=== PATIENT | male | born 1990 | race Caucasian/White ===

== ENCOUNTER 2017-03-20 20:05 | Emergency (ER) | payer OTHER ==
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
--- NOTE | 2017-03-20 21:38 | ED ORDER SUMMARY ---
..... Patient: YOLY LEROY OrderSheet [facility] VisitID: [id number] [place] [address] 26y, M Registration Date/Time: 03/20/2017 ORDER SHEET Weight: 81.6 kg (stated) Allergies: No Known Drug Allergy GENERAL ORDERS: Shoulder 2V or more Right Urgent (20:12 03/20/2017 HBivens A.R.N.P.) (Ack 20:17 AMcQuoid ER Tech1) (20:18 CBradburn R.N.) Ribs Unilat w PA Chest Left Urgent (20:12 03/20/2017 HBivens A.R.N.P.) (Ack 20:17 AMcQuoid ER Tech1) (20:18 CBradburn R.N.) Sling - arm (21:18 03/20/2017 HBivens A.R.N.P.) (21:38 CBradburn R.N.) MEDICATION ORDERS: Tdap IM 0.5 mL (NOW, per protocol) (20:12 03/20/2017 HBivens A.R.N.P.) (Ack 20:30 CBradburn R.N.) (20:37 CBradburn R.N.) Hydrocodone-APAP PO 5/325 mg (NOW, HIGH ALERT MEDICATION) (20:29 03/20/2017 HBivens A.R.N.P.) (Ack 20:30 CBradburn R.N.) (20:34 CBradburn R.N.) IV FLUIDS: ORDER SHEET NOTES: [Electronically signed by Neelima Sanchez R.N. (21:44 03/20/2017)] [Electronically signed by Carole Palma A.R.N.P. (22:24 03/20/2017)] [Electronically locked/signed by Neelima Sanchez R.N. (21:44 03/20/2017)]
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
--- NOTE | 2017-03-20 21:38 | ED ORDER SUMMARY ---
..... Patient: YOLY LEROY OrderSheet [facility] VisitID: [id number] [place] [address] 26y, M Registration Date/Time: 03/20/2017 ORDER SHEET Weight: 81.6 kg (stated) Allergies: No Known Drug Allergy GENERAL ORDERS: Shoulder 2V or more Right Urgent (20:12 03/20/2017 HBivens A.R.N.P.) (Ack 20:17 AMcQuoid ER Tech1) (20:18 CBradburn R.N.) Ribs Unilat w PA Chest Left Urgent (20:12 03/20/2017 HBivens A.R.N.P.) (Ack 20:17 AMcQuoid ER Tech1) (20:18 CBradburn R.N.) Sling - arm (21:18 03/20/2017 HBivens A.R.N.P.) (21:38 CBradburn R.N.) MEDICATION ORDERS: Tdap IM 0.5 mL (NOW, per protocol) (20:12 03/20/2017 HBivens A.R.N.P.) (Ack 20:30 CBradburn R.N.) (20:37 CBradburn R.N.) Hydrocodone-APAP PO 5/325 mg (NOW, HIGH ALERT MEDICATION) (20:29 03/20/2017 HBivens A.R.N.P.) (Ack 20:30 CBradburn R.N.) (20:34 CBradburn R.N.) IV FLUIDS: ORDER SHEET NOTES: [Electronically signed by Neelima Sanchez R.N. (21:44 03/20/2017)] [Electronically signed by Carole Palma A.R.N.P. (22:24 03/20/2017)] [Electronically locked/signed by Neelima Sanchez R.N. (21:44 03/20/2017)]
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
--- NOTE | 2017-03-20 22:24 | ED MAR SUMMARY ---
..... Medication Administration Record [facility] [address] [place] [address] Patient: YOLY LEROY Visit ID: [id number] 26y, M Weight: 81.6 kg Height/Length: 72 in BMI: 24.4 ALLERGIES: No Known Drug Allergy Given 20:34 03/20/2017 Neelima Sanchez R.N. Medication Administered: HYDROCODONE-APAP [PO] (HYDROCODONE-ACETAMINOPHEN), Dose: 1 tab 5/325 mg Tablets PO. Medication Ordered: Hydrocodone-APAP PO 5/325 mg (NOW, HIGH ALERT MEDICATION). Given 20:37 03/20/2017 Neelima Sanchez R.N. Medication Administered: TDAP [IM], Dose: 0.5 mL IM. Medication Ordered: Tdap IM 0.5 mL (NOW, per protocol).
--- NOTE | 2017-03-20 22:24 | ED MED RECONCILIATION SUMMARY ---
Patient: YOLY LEROY Medication Reconciliation Report [facility] VisitID: [id number] [place] [address] 26y, M Registration Date/Time: 03/20/2017 Weight: 81.6 kg Height/Length: 72 in. BMI: 24.4 ALLERGIES: No Known Drug Allergy The patient's Home Medications are listed below: NONE. The source(s) of the original Home Medication information: Not obtained. The following Medications were given to the patient in the Emergency Department: Hydrocodone-APAP [PO] PO 1 tab, administered: 03/20/2017 8:34:00 PM TDAP [IM] IM 0.5 mL, administered: 03/20/2017 8:37:00 PM The following Medications were prescribed to the patient: [place] 5 mg / 325 mg tablets: take 1 orally every 6 hours as needed for pain. Dispense thirty (30). No refill. -- Carole Palma A.R.N.P. Motrin 800 mg tablets: take 1 tablet orally every 8 hours as needed for pain. Dispense thirty (30). No refills. Substitution is permissible. -- Carole Palma A.R.N.P.
--- NOTE | 2017-03-20 22:24 | ED MAR SUMMARY ---
..... Medication Administration Record [facility] [address] [place] [address] Patient: YOLY LEROY Visit ID: [id number] 26y, M Weight: 81.6 kg Height/Length: 72 in BMI: 24.4 ALLERGIES: No Known Drug Allergy Given 20:34 03/20/2017 Neelima Sanchez R.N. Medication Administered: HYDROCODONE-APAP [PO] (HYDROCODONE-ACETAMINOPHEN), Dose: 1 tab 5/325 mg Tablets PO. Medication Ordered: Hydrocodone-APAP PO 5/325 mg (NOW, HIGH ALERT MEDICATION). Given 20:37 03/20/2017 Neelima Sanchez R.N. Medication Administered: TDAP [IM], Dose: 0.5 mL IM. Medication Ordered: Tdap IM 0.5 mL (NOW, per protocol).
--- NOTE | 2017-03-20 22:24 | ED MED RECONCILIATION SUMMARY ---
Patient: YOLY LEROY Medication Reconciliation Report [facility] VisitID: [id number] [place] [address] 26y, M Registration Date/Time: 03/20/2017 Weight: 81.6 kg Height/Length: 72 in. BMI: 24.4 ALLERGIES: No Known Drug Allergy The patient's Home Medications are listed below: NONE. The source(s) of the original Home Medication information: Not obtained. The following Medications were given to the patient in the Emergency Department: Hydrocodone-APAP [PO] PO 1 tab, administered: 03/20/2017 8:34:00 PM TDAP [IM] IM 0.5 mL, administered: 03/20/2017 8:37:00 PM The following Medications were prescribed to the patient: [place] 5 mg / 325 mg tablets: take 1 orally every 6 hours as needed for pain. Dispense thirty (30). No refill. -- Carole Palma A.R.N.P. Motrin 800 mg tablets: take 1 tablet orally every 8 hours as needed for pain. Dispense thirty (30). No refills. Substitution is permissible. -- Carole Palma A.R.N.P.
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
== END 2017-03-20 21:35 | disposition home or self-care (01) ==
LOC: ED SRH 20:05
DX: S42.021A Displaced fracture of shaft of right clavicle, initial encounter for closed fracture (principal); S20.312A Abrasion of left front wall of thorax, initial encounter; V17 Pedal cycle rider injured in collision with fixed or stationary object; Y93.55 Activity, bike riding; Y99.9 Unspecified external cause status; Y92.89 Other specified places as the place of occurrence of the external cause; Z23 Encounter for immunization